=== PATIENT | female | born 2005 | race African-American/Black ===

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

== ENCOUNTER 2023-07-05 07:03 | Emergency (ER) | payer OTHER ==
--- OUTSIDE RECORDS SUMMARY | 2023-07-05 07:06 | XMS REPORT | Continuity of Care Document ---
:2005 Author Organization [facility] t Address [address] [place] [address] [address] [place] [address] Care Team Providers Name Role Phone RUPESH KRUEGER Attending Clinician Unavailable Santiago KENNEDY, Juan Attending Clinician [phone] Ollie KENNEDY, Kamlesh Cummings Attending Clinician KAMLESH TADEO Attending Clinician Unavailable Ailyn KENNEDY, Billie Herrmann Attending Clinician BILLIE ROBERTSON Attending Clinician Unavailable Payers Payer Name Policy Type Policy Number Effective Date Expiration Date [facility] [id number] 2020 [facility] MEDICAID 00:00:00 Problems Condition Condition Condition Status Onset Resolution Last Treating Co mments Source Name Details Category Date Date Treatment Clinician Date No known No known Disease Unive rs active active ity of problems problems [facility] Allergies, Adverse Reactions, Alerts Allergy Allergy Status Severity Reaction(s) Onset Inactive Treating Comm ents Source Name Type Date Date Clinician NO KNOWN Drug Active [facility] Social History Social Habit Start Date Stop Date Quantity Comments Source Exposure to SARS-CoV-2 Not sure [facility] [place] [facility] [place] Sex Assigned At Uni versity [facility] Smoking Status Start Date Stop Date Source Unknown if ever smoked [facility] y [facility] Medications Ordered Filled Start Stop Current Ordering Indication Dosage Frequency Signature Comments Components Source Medication Medication Date Date Medication? Clinician (SIG) Name Name No known No Univers medications [facility] No known No Univers medications [facility] No known No Univers medications [facility] No known No Univers medications [facility] No known No Univers medications [facility] No known No Univers medications [facility] Vital Signs Vital Name Observation Time Observation Value Comments Source Body weight 2020-09-04 16:58:00 58.968 kg Universi ty [facility] Body weight 2020-09-04 16:58:00 58.968 kg Universi ty [facility] Body height 2020-08-24 20:36:00 162.6 cm Universi ty [facility] Body weight 2020-08-24 20:36:00 58.514 kg Universi ty [facility] BMI 2020-08-24 20:36:00 22.14 kg/m2 [facility] Procedures Procedure Date / Time Performing Clinician Source Performed DERMATOPATHOLOGY TISSUE 2020-09-04 00:00:00 [facility] Start End Encounter Admission Attending Care Care Encounter Source Date/Time Date/Time Type Type Clinicians Facility Department ID 2020-10-09 2020-10-09 Outpatient Zoila KRUEGER [facility] [id number] Univers 10:30:00 10:30:00 RUPESH [facility] 2020-09-04 2020-09-04 Office Santiago [facility] [id number] 10:00:23 15:37:22 Visit Juan PRINCE [id number] IAY [id number] [facility] [id number] [facility] [place] [address] [facility] 2020-09-04 2020-09-04 Office Juan Henderson [facility] [id number] Univers 10:00:23 15:37:22 Visit Kamlesh Tadeo [id number] 0 [facility] ADAM [id number] [facility] [id number] [facility] AND [address] [facility] 2020-09-04 2020-09-04 Outpatient Zoila TADEO [facility] [id number] Univers 10:30:00 10:30:00 KAMLESH cedillo [facility] 2020-09-04 2020-09-04 Letter Santiago [facility] [id number] Univers 00:00:00 00:00:00 (Out) Juan [facility] [id number] itnorman [facility] [id number] [facility] [id number] [facility] AND [place] [address] [facility] 2020-08-24 2020-08-24 Office MICHAEL Robertson [id number] Univers 13:48:41 15:00:53 Visit formerly [facility] [id number] i aleks of [facility] [id number] [facility] [id number] [facility] [address] 2020-08-24 2020-08-24 [facility] [id number] [facility] 14:15:00 14:15:00 BILLIE cedillo of [facility] Results This patient has no known results.
--- NOTE | 2023-07-05 07:50 | EDPHYS ---
Physician Documentation [facility] Name: Harmony Montiel Age: 17 yrs Sex: Female : 2005 Arrival Date: 07/05/2023 Time: 07:03 Bed 11 Private MD: ED Physician Isaías Granger HPI: 07/05 07:45 This 17 yrs old Black Female presents to ER via Ambulatory with complaints of Ear Pain. sp3 07:45 17-year-old female with no past medical supersensitive left ear pain and now resolved sp3 sore throat for the last 5 days. No dental pain reported. She denies headache, fever, shortness of breath, neck pain, chest pain, abdominal pain, nausea, vomiting, diarrhea, rash, known sick contacts, travel history, or any other signs or symptoms on ROS at this time.. 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 - Social history:: Smoking status: Patient denies any tobacco usage or history of. ROS: 07:47 Constitutional: Negative for fever, chills, and weight loss, Eyes: Negative for injury, sp3 pain, redness, and discharge, Neck: Negative for injury, pain, and swelling, Cardiovascular: Negative for chest pain, palpitations, and edema, Respiratory: Negative for shortness of breath, cough, wheezing, and pleuritic chest pain, Abdomen/GI: Negative for abdominal pain, nausea, vomiting, diarrhea, and constipation, Back: Negative for injury and pain, MS/Extremity: Negative for injury and deformity, Skin: Negative for injury, rash, and discoloration, Neuro: Negative for headache, weakness, numbness, tingling, and seizure, Psych: Negative for depression, anxiety, suicide ideation, homicidal ideation, and hallucinations, Allergy/Immunology: Negative for hives, rash, and allergies, Endocrine: Negative for neck swelling, polydipsia, polyuria, polyphagia, and marked weight changes, Hematologic/Lymphatic: Negative for swollen nodes, abnormal bleeding, and unusual bruising, 07:47 All other systems are negative, Exam: 07:48 Constitutional: This is a well developed, well nourished patient who is awake, alert, sp3 and in no acute distress. Head/Face: Normocephalic, atraumatic. Eyes: Pupils equal round and reactive to light, extra-ocular motions intact. Lids and lashes normal. Conjunctiva and sclera are non-icteric and not injected. Cornea within normal limits. Periorbital areas with no swelling, redness, or edema. Neck: Trachea midline, no thyromegaly or masses palpated, and no cervical lymphadenopathy. Supple, full range of motion without nuchal rigidity, or vertebral point tenderness. No Meningismus. Chest/axilla: Normal chest wall appearance and motion. Nontender with no deformity. No lesions are appreciated. Cardiovascular: Regular rate and rhythm with a normal S1 and S2. No gallops, murmurs, or rubs. Normal PMI, no JVD. No pulse deficits. Respiratory: Lungs have equal breath sounds bilaterally, clear to auscultation and percussion. No rales, rhonchi or wheezes noted. No increased work of breathing, no retractions or nasal flaring. Abdomen/GI: Soft, non-tender, with normal bowel sounds. No distension or tympany. No guarding or rebound. No evidence of tenderness throughout. Back: No spinal tenderness. No costovertebral tenderness. Full range of motion. Skin: Warm, dry with normal turgor. Normal color with no rashes, no lesions, and no evidence of cellulitis. MS/ Extremity: Pulses equal, no cyanosis. Neurovascular intact. Full, normal range of motion. Neuro: Awake and alert, GCS 15, oriented to person, place, time, and situation. Cranial nerves II-XII grossly intact. Motor strength 5/5 in all extremities. Sensory grossly intact. Cerebellar exam normal. Normal gait. Psych: Awake, alert, with orientation to person, place and time. Behavior, mood, and affect are within normal limits. 07:48 ENT: Left tympanic membrane erythematous without effusion.. Vital Signs: 07:21 BP 102 / 70; Pulse 95; Resp 16; Temp 97.8; Pulse Ox 100% ; Weight 54.43 kg; Height 5 rv ft. 5 in. ; Pain 9/10; 07:21 Body Mass Index 19.97 (54.43 kg, 165.1 cm) - Percentile 27.3 % rv 07:21 Pain Scale: Adult rv MDM: 07:36 Patient medically screened. sp3 07:48 Data reviewed: vital signs, nurses notes. ED course: 17-year-old female with left sp3 otitis media viral versus bacterial. Sore throat is resolved and is normal on examination. There is no dental pathology. Recommend Claritin-D [id number], NSAID [id number] and I will prescribe Augmentin 875 twice daily for 7 days.. Administered Medications: No medications were administered Disposition Summary: 07/05/23 07:50 Discharge Ordered Notes: Location: Home sp3 Condition: Stable sp3 Diagnosis - Otitis media sp3 Followup: sp3 - With: Private Physician - When: As needed - Reason: Continuance of care Discharge Instructions: - Discharge Summary Sheet sp3 - Otitis Media, Adult sp3 Forms: - Medication Reconciliation Form sp3 - Thank You Letter sp3 - Antibiotic Education sp3 - Prescription Opioid Use sp3 - Patient Portal Instructions sp3 - Leadership Thank You Letter sp3 Prescriptions: - Augmentin 875-125 mg Oral tablet - take 1 tablet ORAL route every 12 hours for 7 days; 14 tablet; Refills: 0, sp3 Product Selection Permitted Signatures: Perry Walls RN RN rv Isaías Granger MD MD sp3
--- NOTE | 2023-07-05 07:50 | ER ---
Nurse's Notes [facility] Name: Harmony Montiel Age: 17 yrs Sex: Female : 2005 Arrival Date: 07/05/2023 Time: 07:03 Bed 11 Private MD: Diagnosis: Otitis media Presentation: 07/05 07:21 Chief complaint: Patient states: L ear pain with some drainage for 4 days. Coronavirus rv screen: Vaccine status: Patient reports being unvaccinated. Client denies travel out of the [place] in the last 14 days. At this time, the client does not indicate any symptoms associated with coronavirus-19. Ebola Screen: Patient denies travel to an Ebola-affected area in the 21 days before illness onset. Initial Sepsis Screen: Does the patient meet any 2 criteria? No. Patient's initial sepsis screen is negative. Does the patient have a suspected source of infection? Yes: Other: ear pain/drainage. Risk Assessment: Do you want to hurt yourself or someone else? Patient reports no desire to harm self or others. Onset of symptoms was July 01, 2023. 07:21 Method Of Arrival: Ambulatory rv 07:21 Acuity: BASHIR 4 rv Triage Assessment: 07:21 General: Appears uncomfortable, Behavior is calm, cooperative, appropriate for age. ll1 Pain: Complains of pain in left ear Pain currently is 9 out of 10 on a pain scale. Quality of pain is described as aching, throbbing. EENT: Ear canal clear on left ear see Dr. Granger's note for further details. Reports pain in left ear. 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 - Social history:: Smoking status: Patient denies any tobacco usage or history of. Screenin:58 [facility] ED Fall Risk Assessment (Adult) Score/Fall Risk Level 0 - 2 = Low Risk ll1 Oriented to surroundings, Maintained a safe environment, Educated pt \T\ family on fall prevention, incl call for assistance when getting out of bed, Hourly rounding (assess needs \T\ fall precautionary measures) done. Abuse screen: Denies threats or abuse. Nutritional screening: No deficits noted. Tuberculosis screening: No symptoms or risk factors identified. Assessment: 07:57 Reassessment: No changes from previously documented assessment. Patient and/or family ll1 updated on plan of care and expected duration. Pain level reassessed. Patient is alert, oriented x 3, equal unlabored respirations, skin warm/dry/pink. Vital Signs: 07:21 BP 102 / 70; Pulse 95; Resp 16; Temp 97.8; Pulse Ox 100% ; Weight 54.43 kg; Height 5 rv ft. 5 in. ; Pain 9/10; 07:21 Body Mass Index 19.97 (54.43 kg, 165.1 cm) - Percentile 27.3 % rv 07:21 Pain Scale: Adult rv ED Course: 07:06 Patient arrived in ED. mg5 07:12 Isaías Granger MD is Attending Physician. sp3 07:21 Arm band placed on Patient placed in an exam room, on a stretcher. rv 07:22 Triage completed. rv 07:57 Patient has correct armband on for positive identification. Bed in low position. Call ll1 light in reach. Cardiac monitoring not applicable on this patient. 07:58 Provided Education on: n/a. ll1 07:58 No provider procedures requiring assistance completed. Patient did not have IV access ll1 during this emergency room visit. Administered Medications: No medications were administered Medication: 08:02 VIS not applicable for this client. ll1 Outcome: 07:50 Discharge ordered by . sp3 07:58 Patient left the ED. ll1 07:58 Discharged to home ambulatory, ll1 07:58 Condition: stable 07:58 Discharge instructions given to patient, family, Instructed on discharge instructions, follow up and referral plans. medication usage, Demonstrated understanding of instructions, follow-up care, medications, Prescriptions given X 1, Signatures: Perry Walls RN RN Elena Elaine RN RN ll1 Isaías Granger MD MD sp3 Riri Gomes mg5
[2023-07-05 08:02] VITALS: BP 102/70; TEMP 97.8; O2SAT 100
== END 2023-07-05 07:58 | disposition home or self-care (01) ==
LOC: ER 07:03
DX: H66.92 Otitis media, unspecified, left ear (principal)
CPT/HCPCS: 99283

== ENCOUNTER → 2023-09-07 | Emergency (ER) | payer OTHER ==
[~2023-09-07] MED LIST: ALBUTEROL 2.5 MG/3 ML NEB SOL ONE; FAMOTIDINE 20 MG/2 ML VIAL IV ONE; IPRATROPIUM BROM 0.5MG/2.5ML ONE; KETOROLAC 30 MG/ML INJ ONE; Magnesium Sulfate 2gm IVPB 2 G/50 ML BAG IV ONE; NA CHLORIDE 0.9% 1,000 ML ONE; POTASSIUM 25 MEQ EFFERV TAB ONE
--- OUTSIDE RECORDS SUMMARY | 2023-09-07 21:02 | XMS REPORT | Continuity of Care Document ---
Author Name Unknown Address [address] [place] [address] [facility] thconnect Address [address] [place] [address] Care Team Providers Care Flag Signaler Name Role Phone RUPESH KRUEGER Attending Clinician Unavail able Santiago KENNEDY, Juan Attending Clinician + Kamlesh Levin MD Attending Clinician [phone] KAMLESH LEVIN Attending Clinician Jazmin Robertson MD, Billie Herrmann Attending Clinician [phone] BILLIE ROBERTSON Attending Clinician Unavail able Payers Payer Name Policy Type Policy Number Effective Date Expirati on Date Source [facility] MEDICAID [id number] 2020 00:00:00 Problems Condition Name Condition Details Condition Category Status Onset Date Resolution Date Last Treatment Date Treating Clinician Comments Source No known active problems No known active problems Disease [facility] Allergies, Adverse Reactions, Alerts Allergy Name Allergy Type Status Severity Reaction(s) Onset Date Inactive Date Treating Clinician Comments Source NO KNOWN ALLERGIE S Drug Class Active [facility] Social History Social Habit Start Date Stop Date Quantity Comments Source Exposure to SARS-CoV-2 (event) Not sure [facility] Sex Assigned At [facility] Smoking Status Start Date Stop Date Source Unknown if ever smoked Unive [facility] Medications Ordered Medication Name Filled Medication Name Start Date Stop Date Current Medication? Ordering Clinician Indication Dosage Frequency Signature (SIG) Comments Components Source No known medications No Un nancy [facility] No known medications No Un nancy [facility] No known medications No Un nancy [facility] No known medications No Un nancy ity [facility] No known medications No Un nancy [facility] No known medications No Un nancy [facility] Vital Signs Vital Name Observation Time Observation Value Comments Flakito mohan Body weight 2020-09-04 16:58:00 58.968 kg [facility] Body weight 2020-09-04 16:58:00 58.968 kg [facility] Body height 2020-08-24 20:36:00 162.6 cm [facility] Body weight 2020-08-24 20:36:00 58.514 kg [facility] BMI 2020-08-24 20:36:00 22.14 kg/m2 [facility] Procedures Procedure Date / Time Performed Performing Clinician Source DERMATOPATHOLOGY TISSUE EXAM 2020-09-04 00:00:00 Kamlesh Levin [facility] Encounters Start Date/Time End Date/Time Encounter Type Admission Type Attending Clinicians Care Facility Care Department Encounter ID Source 2020-10-09 10:30:00 2020-10-09 10:30:00 Outpatient RUPESH SAUL [facility] [id number] [facility] 2020-09-04 10:00:23 2020-09-04 15:37:22 Office Visit Juan Henderson [facility] [id number] 2020-09-04 10:00:23 2020-09-04 15:37:22 Office Visit Juan Henderson Bernard R [facility] [id number] [facility] 2020-09-04 10:30:00 2020-09-04 10:30:00 Outpatient KAMLESH LOPES [facility] [id number] [facility] 2020-09-04 00:00:00 2020-09-04 00:00:00 Letter (Out) Juan Henderson [facility] [id number] [facility] 2020-08-24 13:48:41 2020-08-24 15:00:53 Office Visit Billie Robertson [facility] [id number] [facility] 2020-08-24 14:15:00 2020-08-24 14:15:00 Outpatient R BILLIE ROBERTSON [facility] [id number] [facility]
[2023-09-07 22:52] LABS: Absolute Lymphocytes (CBC) 2.1 K/uL (0.7-4.9); Hematocrit 36.7 % (36.0-45.0); Lymphocytes % 32.2 % (15.3-44.8); MCV 81.3 fL (80-100); MPV 8.5 fL (7.6-11.3); Platelets 237 thou/uL (152-406); RBC Red Blood Cell Count 4.51 M/uL (3.86-4.86)
[2023-09-07 22:57] LABS: ALT/SGPT 15 U/L (13-56); AST/SGOT 11 U/L (15-37); Albumin 3.9 g/dL (3.4-5.0); Alkaline Phosphatase 87 U/L (45-117); BUN Blood Urea Nitrogen 10 mg/dL (7-18); Bicarbonate 25 mEq/L (21-32); Bilirubin Direct 0.2 mg/dL (0-0.2); Bilirubin Indirect, Calculated 0.4 mg/dL (0.2-0.8); Bilirubin Total 0.6 mg/dL (0.2-1.0); Glomerular Filtration Rate 128 ml/min (=/>90); Glucose Level 105 mg/dL (74-106); Lipase 36 U/L (13-75); Magnesium 2.2 mg/dL (1.6-2.4); Potassium 3.3 mEq/L (3.5-5.1); Protein, Total 7.8 g/dL (6.4-8.2); Sodium Level 138 mEq/L (136-145)
[2023-09-07 22:58] LABS: Troponin High Sensitivity < 3.0 pg/mL (<58.9)
--- NOTE | 2023-09-08 00:12 | EDPHYS ---
Physician Documentation [facility] Name: Harmony Montiel Age: 18 yrs Sex: Female : 2005 Arrival Date: 09/07/2023 Time: 20:59 Bed IW10 Private MD: ED Physician Norman Tamez HPI: 09/07 22:05 This 18 yrs old Black Female presents to ER via Ambulatory with complaints of Chest cp Pain. 22:05 The patient or guardian reports chest pain that is located primarily in the anterior cp chest wall, bilaterally. The pain does not radiate. Associated signs and symptoms: Pertinent positives: dizziness, back pain, Pertinent negatives: abdominal pain, cough, lower extremity pain, lower extremity swelling, near syncope, palpitations, shortness of breath, syncope, vomiting. The chest pain is described as burning. Duration: The patient or guardian reports a single episode, that is still ongoing, and unchanged, started 1 hour ago. 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 - Social history:: Smoking status: Patient denies any tobacco usage or history of. ROS: 22:10 Cardiovascular: Positive for chest pain, Negative for edema, palpitations, cp 22:10 Eyes: Negative for injury, pain, redness, and discharge, cp 22:10 Constitutional: Negative for body aches, chills, fever, poor PO intake, 22:10 Neck: Negative for pain with movement, pain at rest, stiffness, tenderness, bony tenderness, 22:10 Respiratory: Negative for cough, shortness of breath, wheezing, 22:10 Back: Positive for pain at rest, pain with movement, of the left scapular area, right scapular area, left subscapular area and right subscapular area, Negative for injury or acute deformity, decreased range of motion, 22:10 Abdomen/GI: Negative for abdominal pain, vomiting, diarrhea, constipation, cp 22:10 : Negative for urinary symptoms, 22:10 Neuro: Positive for dizziness, Negative for altered mental status, headache, numbness, syncope, weakness, 22:10 All other systems are negative, Exam: 21:42 ECG was reviewed by the Attending Physician. cp 22:15 Constitutional: The patient appears in no acute distress, alert, awake, cp non-diaphoretic, non-toxic, well developed, well nourished, 22:15 Head/Face: Normocephalic, atraumatic. cp 22:15 Eyes: Periorbital structures: appear normal, Conjunctiva: normal, no exudate, no injection, Sclera: no appreciated abnormality, Lids and lashes: appear normal, bilaterally, 22:15 ENT: External ear(s): are unremarkable, Nose: is normal, Mouth: Lips: moist, Oral mucosa: moist, Posterior pharynx: Airway: no evidence of obstruction, patent, 22:15 Neck: ROM/movement: is normal, is supple, without pain, no range of motions limitations, 22:15 Chest/axilla: Inspection: normal, 22:15 Cardiovascular: Rate: tachycardic, Rhythm: regular, Edema: is not appreciated, JVD: is not appreciated, 22:15 Respiratory: the patient does not display signs of respiratory distress, Respirations: normal, no use of accessory muscles, no retractions, labored breathing, is not present, Breath sounds: are clear throughout, no decreased breath sounds, no stridor, no wheezing, 22:15 Abdomen/GI: Inspection: abdomen appears normal, Palpation: abdomen is soft and non-tender, in all quadrants, 22:15 Back: pain, that is mild, of the left scapular area, right scapular area, left subscapular area and right subscapular area, ROM is normal, 22:15 Skin: no rash present. 22:15 Neuro: Orientation: to person, place \T\ time. Mentation: is normal, Motor: moves all fours, strength is normal, Vital Signs: 21:00 BP 111 / 79; Pulse 100; Resp 16; Pulse Ox 100% ; la4 21:09 BP 111 / 79; Pulse 103; Resp 20 S; Temp 98.2(O); Pulse Ox 100% on R/A; Weight 56.7 kg as6 (R); Height 5 ft. 5 in. (R); Pain 6/10; 21:30 BP 123 / 74; Pulse 92; Resp 16; Pulse Ox 100% ; la4 22:00 BP 122 / 68; Pulse 97; Resp 16; Pulse Ox 100% ; la4 21:09 Body Mass Index 20.80 (56.70 kg, 165.1 cm) - Percentile 38.3 % as6 21:09 Pain Scale: Adult as6 Mohsen Coma Score: 21:30 Eye Response: spontaneous(4). Motor Response: obeys commands(6). Verbal Response: la4 oriented(5). Total: 15. 22:00 Eye Response: spontaneous(4). Motor Response: obeys commands(6). Verbal Response: la4 oriented(5). Total: 15. MDM: 21:14 Patient medically screened. 22:00 Differential diagnosis: acute myocardial infarction, acute pericarditis, anxiety, chest cp wall pain, cholecystitis, Cholelithiasis costochondritis, pericarditis, pleurisy, pneumonia, pneumothorax, pulmonary embolus. 09/08 00:10 Data reviewed: vital signs, nurses notes, lab test result(s), EKG, radiologic studies, cp plain films. 00:10 I considered the following discharge prescriptions or medication management in the emergency department Medications were administered in the Emergency Department. See MAR. Test considered but Not performed: CT: chest. Counseling: I had a detailed discussion with the patient and/or guardian regarding the historical points, exam findings, and any diagnostic results supporting the discharge/admit diagnosis, lab results, radiology results, the need for outpatient follow up, a family practitioner, to return to the emergency department if symptoms worsen or persist or if there are any questions or concerns that arise at home. Response to treatment: the patient's symptoms have markedly improved after treatment, and as a result, I will discharge patient. Special discussion: Based on the patient's history, exam, and Dx evaluation, there is no indication for emergent intervention or inpatient Tx. It is understood by the patient/guardian that if the Sx's persist or worsen they need to return immediately for re-evaluation. 09/07 21:19 Order name: Basic Metabolic Panel; Complete Time: 23:10 09/07 23:11 Interpretation: Normal except: K 3.3. 09/07 21:19 Order name: CBC with Diff; Complete Time: 23:10 09/07 21:19 Order name: D-Dimer; Complete Time: 23:10 cp 09/07 21:19 Order name: LFT's; Complete Time: 23:10 cp 09/07 21:19 Order name: Magnesium; Complete Time: 23:10 cp 09/07 21:19 Order name: Troponin HS; Complete Time: 23:10 cp 09/07 21:19 Order name: Lipase; Complete Time: 23:10 cp 09/07 21:19 Order name: XRAY Chest (1 view) cp 09/07 21:19 Order name: EKG; Complete Time: 21:20 cp 09/07 21:19 Order name: Cardiac monitoring; Complete Time: 21:41 cp 09/07 21:19 Order name: EKG - Nurse/Tech; Complete Time: 21:41 cp 09/07 21:19 Order name: IV Saline Lock; Complete Time: 22:24 cp 09/07 21:19 Order name: Labs collected and sent; Complete Time: 22:24 cp 09/07 21:19 Order name: O2 Per Protocol; Complete Time: 22:24 cp 09/07 21:19 Order name: O2 Sat Monitoring; Complete Time: 22:24 cp EC/28 21:42 Rate is 97 beats/min. Rhythm is regular. MN interval is normal. QRS interval is normal. cp QT interval is normal. T waves are Inverted in leads I, II. Interpreted by me. Reviewed by me. Administered Medications: 21:40 Drug: Ketorolac IVP 15 mg IVP once Route: IVP; Site: right forearm; la4 22:28 Follow up: Response: No adverse reaction; No change in condition; Pain is decreased la4 23:46 Follow up: Response: No adverse reaction; Pain is decreased la4 21:40 Drug: NS 0.9% IV 1000 ml IV at 1 bolus Per protocol; 1000 mL bolus Route: IV; Rate: 1 la4 bolus; Site: right forearm; 23:45 Follow up: Response: No adverse reaction; Marked relief of symptoms; IV Status: la4 Completed infusion; IV Intake: 1000ml 21:40 Drug: Famotidine IVP 20 mg IVP once; dilute with 10 mL 0.9% NaCl; give over 2 minutes la4 Route: IVP; Site: right forearm; 22:29 Follow up: Response: No adverse reaction; Marked relief of symptoms; Pain is decreased la4 23:45 Follow up: Response: No adverse reaction; Marked relief of symptoms la4 23:53 Drug: Potassium PO Effervescent Tablet 50 mEq PO once; dissolve in 4 ounces of water or la4 juice Route: PO; Disposition: 09/08 07:04 Co-signature as Attending Physician, Norman Tamez MD I reviewed the patient's care rn provided by the Advanced Practice Provider and agree with the diagnosis and treatment plan. Disposition Summary: 09/08/23 00:12 Discharge Ordered Notes: Location: Home cp Problem: new cp Symptoms: have improved cp Condition: Stable cp Diagnosis - Chest pain, unspecified cp - Dorsalgia, unspecified cp Followup: cp - With: Private Physician - When: 2 - 3 days - Reason: Recheck today's complaints Discharge Instructions: - Discharge Summary Sheet cp - Acute Back Pain, Adult cp - Nonspecific Chest Pain, Adult cp Forms: - Medication Reconciliation Form cp - Thank You Letter cp - Antibiotic Education cp - Prescription Opioid Use cp - Patient Portal Instructions cp - Leadership Thank You Letter cp Prescriptions: - Ibuprofen 600 mg Oral tablet - take 1 tablet ORAL route every 8 hours As needed take with food; 30 tablet; cp Refills: 0, Product Selection Permitted Signatures: Dispatcher [employer] EDNorman Caraballo MD MD rn Page, Corey, PA PA cp Lakhwinder Mcguire RN RN as6 Tomer Calderon RN RN la4
--- NOTE | 2023-09-08 00:12 | ER ---
Nurse's Notes [facility] Name: Harmony Montiel Age: 18 yrs Sex: Female : 2005 Arrival Date: 09/07/2023 Time: 20:59 Bed IW10 Private MD: Diagnosis: Chest pain, unspecified;Dorsalgia, unspecified Presentation: 09/07 21:09 Chief complaint: Patient states: dizziness, "feeling off", chest burning. Coronavirus as6 screen: At this time, the client does not indicate any symptoms associated with coronavirus-19. Ebola Screen: No symptoms or risks identified at this time. Initial Sepsis Screen: Does the patient meet any 2 criteria? No. Patient's initial sepsis screen is negative. Does the patient have a suspected source of infection? No. Patient's initial sepsis screen is negative. Risk Assessment: Do you want to hurt yourself or someone else? Patient reports no desire to harm self or others. Onset of symptoms was September 07, 2023. 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 - Social history:: Smoking status: Patient denies any tobacco usage or history of. Screenin:38 [facility] ED Fall Risk Assessment (Adult) History of falling in the last 3 months, la4 including since admission No falls in past 3 months (0 pts) Confusion or Disorientation No (0 pts) Intoxicated or Sedated No (0 pts) Impaired Gait Yes (1 pt) Mobility Assist Device Used No (0 pt) Altered Elimination No (0 pt) Score/Fall Risk Level 0 - 2 = Low Risk Oriented to surroundings, Provided non-skid footwear, Hourly rounding (assess needs \\T\\ fall precautionary measures) done. Abuse screen: Denies threats or abuse. Denies injuries from another. Nutritional screening: No deficits noted. Tuberculosis screening: No symptoms or risk factors identified. Assessment: 21:30 Reassessment: Patient is alert, oriented x 3, equal unlabored respirations, skin la4 warm/dry/pink. Patient noted to be in room, on monitor, no report on pt being brought to room or pt complaint. Pt appears to be in no apparent distress at this time. Pt reports she came to ER for burning in her chest after eating pasta prior to coming in. Patient Triaged by Lakhwinder PLAZA and placed in room with no report given. General: Appears uncomfortable, Behavior is calm, cooperative, appropriate for age. 21:30 Pain: Complains of pain in anterior aspect of right upper chest, xiphoid area and la4 mid-sternal area Pain does not radiate. Pain currently is 5 out of 10 on a pain scale. Quality of pain is described as burning, Pain began suddenly, after eating pasta Is continuous, lasting more than 1 hour. Cardiovascular: No deficits noted. Heart tones S1 S2 Capillary refill < 3 seconds is brisk fingers Patient's skin is warm and dry. Pulses are all present. Edema is absent. Rhythm is sinus rhythm. Respiratory: No deficits noted. Airway is patent Respiratory effort is even, unlabored, Respiratory pattern is regular, symmetrical, Breath sounds are clear. GI: No deficits noted. Abdomen is flat, non-distended, Bowel sounds present X 4 quads. : No deficits noted. No signs and/or symptoms were reported regarding the genitourinary system. EENT: No deficits noted. No signs and/or symptoms were reported regarding the EENT system. Derm: No deficits noted. No signs and/or symptoms reported regarding the dermatologic system. Musculoskeletal: No deficits noted. No signs and/or symptoms reported regarding the musculoskeletal system. Vital Signs: 21:00 BP 111 / 79; Pulse 100; Resp 16; Pulse Ox 100% ; la4 21:09 BP 111 / 79; Pulse 103; Resp 20 S; Temp 98.2(O); Pulse Ox 100% on R/A; Weight 56.7 kg as6 (R); Height 5 ft. 5 in. (R); Pain 6/10; 21:30 BP 123 / 74; Pulse 92; Resp 16; Pulse Ox 100% ; la4 22:00 BP 122 / 68; Pulse 97; Resp 16; Pulse Ox 100% ; la4 21:09 Body Mass Index 20.80 (56.70 kg, 165.1 cm) - Percentile 38.3 % as6 21:09 Pain Scale: Adult as6 Vitals: 21:30 Cardiac Rhythm Assessment Regular Sinus rhythm. la4 Mohsen Coma Score: 21:30 Eye Response: spontaneous(4). Motor Response: obeys commands(6). Verbal Response: la4 oriented(5). Total: 15. 22:00 Eye Response: spontaneous(4). Motor Response: obeys commands(6). Verbal Response: la4 oriented(5). Total: 15. ED Course: 21:04 Patient arrived in ED. ag3 21:10 Triage completed. as6 21:10 Arm band placed on. as6 21:14 Mina Caro PA is PHCP. cp 21:14 Norman Tamez MD is Attending Physician. cp 21:30 Tomer Calderon RN is Primary Nurse. la4 21:30 Patient has correct armband on for positive identification. Placed in gown. Bed in low la4 position. Call light in reach. Side rails up X2. 21:30 No provider procedures requiring assistance completed. Inserted saline lock: 20 gauge la4 in right forearm, using aseptic technique. Blood collected. 21:30 Patient maintains SpO2 saturation greater than 95% on room air. la4 22:38 Provided Education on: Plan of care. Client placed on continuous cardiac and pulse la4 oximetry monitoring. NIBP monitoring applied. 22:48 XRAY Chest (1 view) In Process Unspecified. EDMS Administered Medications: 21:40 Drug: Ketorolac IVP 15 mg IVP once Route: IVP; Site: right forearm; la4 22:28 Follow up: Response: No adverse reaction; No change in condition; Pain is decreased la4 23:46 Follow up: Response: No adverse reaction; Pain is decreased la4 21:40 Drug: NS 0.9% IV 1000 ml IV at 1 bolus Per protocol; 1000 mL bolus Route: IV; Rate: 1 la4 bolus; Site: right forearm; 23:45 Follow up: Response: No adverse reaction; Marked relief of symptoms; IV Status: la4 Completed infusion; IV Intake: 1000ml 21:40 Drug: Famotidine IVP 20 mg IVP once; dilute with 10 mL 0.9% NaCl; give over 2 minutes la4 Route: IVP; Site: right forearm; 22:29 Follow up: Response: No adverse reaction; Marked relief of symptoms; Pain is decreased la4 23:45 Follow up: Response: No adverse reaction; Marked relief of symptoms la4 23:53 Drug: Potassium PO Effervescent Tablet 50 mEq PO once; dissolve in 4 ounces of water or la4 juice Route: PO; Medication: 22:40 VIS not applicable for this client. la4 Intake: 23:45 IV: 1000ml; Total: 1000ml. la4 Outcome: 09/08 00:12 Discharge ordered by . sharon 00:30 Discharged to home la4 00:30 Condition: stable la4 00:30 Instructed on discharge instructions, follow up and referral plans. Demonstrated understanding of instructions, follow-up care, medications, Prescriptions given X 1, 05:09 Patient left the ED. la4 Signatures: Dispatcher [employer] EDMS Mina Caro PA PA cp Gomez, Alice ag3 Lakhwinder Mcguire RN RN as6 Tomer Calderon RN RN la4 Corrections: (The following items were deleted from the chart) 09/07 22:39 22:38 Patient has correct armband on for positive identification. Placed in gown. Bed la4 in low position. Call light in reach. Side rails up X2. la4
[2023-09-08 05:39] VITALS: BP 122/68; TEMP 98.2; O2SAT 100
--- NOTE | 2023-09-08 13:16 | RAD REPORT ---
EXAM DESCRIPTION: RAD - Chest Single View - 09/07/2023 10:47 pm CLINICAL HISTORY: 18 years Female, CHEST PAIN COMPARISON: None FINDINGS: No focal lung consolidation. No pleural effusion. No pneumothorax. Cardiomediastinal silhouette is within normal limits. No acute osseous abnormality. IMPRESSION: No acute cardiopulmonary disease. 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 The interpreting r adiologist is fully responsible for the content of the report.
== END ==
LOC: ER 20:59
DX: R07.89 Other chest pain (principal); M54.9 Dorsalgia, unspecified
CPT/HCPCS: 93005; 85025; 80048; 36415; 83735; 85379; 80076; 84484; 83690; 71045; J7030

== ENCOUNTER → 2023-10-06 | Emergency (ER) | payer OTHER ==
--- OUTSIDE RECORDS SUMMARY | 2023-10-06 09:54 | XMS REPORT | Continuity of Care Document ---
Author Name Unknown Address [address] [facility] [address] [place] [address] [facility] thconnect Address [address] [facility] [address] [place] [address] Care Team Providers Care Electronics Maintenance Technician Name Role Phone RUPESH KRUEGER Attending Clinician Unavail able Santiago KENNEDY, Juan Attending Clinician + Kamlesh Levin MD Attending Clinician [phone] KAMLESH LEVIN Attending Clinician Jazmin Robertson MD, Billie Herrmann Attending Clinician [phone] BILLIE ROBERTSON Attending Clinician Unavail able Payers Payer Name Policy Type Policy Number Effective Date Expirati on Date Source [facility] MEDICAID [id number] 2020 00:00:00 Problems Condition Name Condition Details Condition Category Status Onset Date Resolution Date Last Treatment Date Treating Clinician Comments Source No known active problems No known active problems Disease Univers [facility] Allergies, Adverse Reactions, Alerts Allergy Name Allergy Type Status Severity Reaction(s) Onset Date Inactive Date Treating Clinician Comments Source NO KNOWN ALLERGIE S Drug Class Active Univers [facility] Social History Social Habit Start Date Stop Date Quantity Comments Source Exposure to SARS-CoV-2 (event) Not sure [facility] Sex Assigned At [facility] Smoking Status Start Date Stop Date Source Unknown if ever smoked Unive [facility] Medications Ordered Medication Name Filled Medication Name Start Date Stop Date Current Medication? Ordering Clinician Indication Dosage Frequency Signature (SIG) Comments Components Source No known medications No Un nancy [facility] No known medications No Un nancy [facility] No known medications No Un nancy [facility] No known medications No Un nancy ity [facility] No known medications No Un nancy [facility] No known medications No Un nancy [facility] Vital Signs Vital Name Observation Time Observation Value Comments Flakito mohan Body weight 2020-09-04 16:58:00 58.968 kg [facility] Body weight 2020-09-04 16:58:00 58.968 kg [facility] Body height 2020-08-24 20:36:00 162.6 cm [facility] Body weight 2020-08-24 20:36:00 58.514 kg [facility] BMI 2020-08-24 20:36:00 22.14 kg/m2 [facility] Procedures Procedure Date / Time Performed Performing Clinician Source DERMATOPATHOLOGY TISSUE EXAM 2020-09-04 00:00:00 Kamlesh Levin [facility] Encounters Start Date/Time End Date/Time Encounter Type Admission Type Attending Clinicians Care Facility Care Department Encounter ID Source 2020-10-09 10:30:00 2020-10-09 10:30:00 Outpatient RUPESH SAUL [facility] [id number] [facility] 2020-09-04 10:00:23 2020-09-04 15:37:22 Office Visit Juan Henderson [facility] [id number] 2020-09-04 10:00:23 2020-09-04 15:37:22 Office Visit Juan Henderson Bernard R [facility] [id number] [facility] 2020-09-04 10:30:00 2020-09-04 10:30:00 Outpatient KAMLESH LOPES [facility] [id number] [facility] 2020-09-04 00:00:00 2020-09-04 00:00:00 Letter (Out) Juan Henderson [facility] [id number] [facility] 2020-08-24 13:48:41 2020-08-24 15:00:53 Office Visit Billie Robertson [facility] [id number] [facility] 2020-08-24 14:15:00 2020-08-24 14:15:00 Outpatient R BILLIE ROBERTSON [facility] [id number] [facility]
[2023-10-06 10:32] LABS: Specific Gravity 1.026 (1.005-1.030)
[2023-10-06 10:33] LABS: Specific Gravity 1.026 (1.005-1.030); Transitional Epithelial <5 /HPF (None Seen); Urine Bacteria <20 /HPF (<20); Urine Bilirubin NEGATIVE (Negative); Urine Blood Negative (Negative); Urine Clarity Extremely Turbid (Clear); Urine Color Yellow (Yellow); Urine Glucose NEGATIVE (Negative); Urine Mucus 3+ /HPF (None Seen); Urine Protein TRACE (Negative); Urine Urobilinogen Normal (Normal); Urine pH 5.5 (5.0-7.0)
--- NOTE | 2023-10-06 10:36 | ER ---
Nurse's Notes [facility] Name: Harmony Montiel Age: 18 yrs Sex: Female : 2005 Arrival Date: 10/06/2023 Time: 09:51 Bed 20 Private MD: Diagnosis: Acute cystitis with hematuria Presentation: 10/06 09:57 Chief complaint: Patient states: Dysuria since Friday, taking AZO's, states she had nj1 diarrhea yesterday and saw blood in it. Today, she noticed blood when wiping after she urinated. Coronavirus screen: Vaccine status: Patient reports being unvaccinated. Ebola Screen: Patient denies travel to an Ebola-affected area in the 21 days before illness onset. 09:57 Method Of Arrival: Ambulatory [facility] 09:57 Initial Sepsis Screen: Does the patient meet any 2 criteria? No. Patient's initial [facility] sepsis screen is negative. Does the patient have a suspected source of infection? No. Patient's initial sepsis screen is negative. Risk Assessment: Do you want to hurt yourself or someone else? Patient reports no desire to harm self or others. Onset of symptoms was October 03, 2023. 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 - Social history:: Smoking status: Reported history of juuling and/or vaping. Screenin:11 [facility] ED Fall Risk Assessment (Adult) History of falling in the last 3 months, me1 including since admission No falls in past 3 months (0 pts) Confusion or Disorientation No (0 pts) Intoxicated or Sedated No (0 pts) Impaired Gait No (0 pts) Mobility Assist Device Used No (0 pt) Altered Elimination No (0 pt) Score/Fall Risk Level 0 - 2 = Low Risk Oriented to surroundings, Provided non-skid footwear, Hourly rounding (assess needs \T\ fall precautionary measures) done. Abuse screen: Denies threats or abuse. Nutritional screening: No deficits noted. Tuberculosis screening: No symptoms or risk factors identified. Assessment: 10:11 General: Appears comfortable, well groomed, well developed, well nourished, Behavior is me1 calm, cooperative, appropriate for age, Reports Dysuria since Friday, taking AZO's, states she had diarrhea yesterday and saw blood in it. Today, she noticed blood when wiping after she urinated. Pain: Denies pain. Neuro: Level of Consciousness is awake, alert, obeys commands, Oriented to person, place, time, situation, Appropriate for age. Cardiovascular: Capillary refill < 3 seconds Patient's skin is warm and dry. Respiratory: Airway is patent Trachea midline Respiratory effort is even, unlabored, Respiratory pattern is regular, symmetrical. : Reports burning with urination, since 3 days ago blood noted when wiping after urination. Vital Signs: 09:57 BP 120 / 82; Pulse 80; Resp 16; Temp 98.2(O); Pulse Ox 96% on R/A; Weight 56.7 kg; nj1 Height 5 ft. 5 in. ; 10:15 BP 121 / 79; Pulse 72; Resp 16; Pulse Ox 99% on R/A; me1 10:42 BP 115 / 72; Pulse 67; Resp 16; Pulse Ox 99% on R/A; me1 09:57 Body Mass Index 20.80 (56.70 kg, 165.1 cm) nj1 ED Course: 09:55 Patient arrived in ED. mg5 09:55 Zahra Jenkins PA-C is PHCP. sb4 09:55 Mian Stock MD is Attending Physician. sb4 10:03 Triage completed. nj1 10:03 Jeannine Ridley, RN is Primary Nurse. me1 10:04 Arm band placed on. nj1 10:11 Patient has correct armband on for positive identification. Bed in low position. Call me1 light in reach. Side rails up X 1. Provided Education on: POC. Verbalized understanding. . 10:11 No provider procedures requiring assistance completed. Patient did not have IV access [facility] during this emergency room visit. 10:15 UAM Sent. me1 10:15 Test, Urine Sent. me1 10:42 Urine Culture Sent. me1 Administered Medications: No medications were administered Medication: 10:11 VIS not applicable for this client. me1 Outcome: 10:34 Discharge ordered by . sb4 10:44 Discharged to home ambulatory, me1 10:44 Condition: stable 10:44 Discharge instructions given to patient, Instructed on discharge instructions, follow up and referral plans. medication usage, Demonstrated understanding of instructions, follow-up care, medications, 10:45 Patient left the ED. me1 Signatures: Zahra Jenkins PA-C PA-C sb4 Mely Ashton RN RN nj1 Jeannine Ridley RN RN me1 Riri Gomes mg5 Corrections: (The following items were deleted from the chart) 10:04 09:57 Chief complaint: Patient states: Dysuria since Friday, taking AZO's, states she me1 had diarrhea yesterday and saw blood in it. Today, she noticed blood when wiping after she urinated. nj1
--- NOTE | 2023-10-06 10:36 | EDPHYS ---
Physician Documentation [facility] Name: Harmony Montiel Age: 18 yrs Sex: Female : 2005 Arrival Date: 10/06/2023 Time: 09:51 Bed 20 Private MD: ED Physician Mina Stock HPI: 10/06 10:13 This 18 yrs old Black Female presents to ER via Ambulatory with complaints of Urinary sb4 Problem. 10:13 Patient reports dysuria began about 3 days ago. She has been taking Azo which has sb4 relieved the symptoms. She states that this morning she noticed a few drops of blood when she wiped after urinating. She believes it came from her urethra. She states that she is not supposed to start her menstrual cycle for another 10 days. She denies any flank pain, fever, nausea, vomiting. 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 - Social history:: Smoking status: Reported history of juuling and/or vaping. ROS: 10:13 Positive for hematuria, burning with urination, sb4 10:13 Constitutional: Negative for fever, chills, and weight loss, 10:13 All other systems are negative, Exam: 10:13 Constitutional: This is a well developed, well nourished patient who is awake, alert, sb4 and in no acute distress. Head/Face: Normocephalic, atraumatic. Eyes: Extra-ocular motions intact. Periorbital areas with no swelling, redness, or edema. ENT: Mucous membranes moist. Cardiovascular: Regular rate and rhythm with a normal S1 and S2. Respiratory: Lungs have equal breath sounds bilaterally, clear to auscultation and percussion. No rales, rhonchi or wheezes noted. No increased work of breathing, no retractions or nasal flaring. Abdomen/GI: Soft, non-tender, no distension. Back: No spinal tenderness. No costovertebral tenderness. Full range of motion. Skin: Warm, dry with normal turgor. Normal color with no rashes, no lesions, and no evidence of cellulitis. MS/ Extremity: Pulses equal, no cyanosis. Neurovascular intact. Full, normal range of motion. Neuro: Awake and alert, GCS 15, oriented to person, place, time, and situation. Motor strength 5/5 in all extremities. Sensory grossly intact. Vital Signs: 09:57 BP 120 / 82; Pulse 80; Resp 16; Temp 98.2(O); Pulse Ox 96% on R/A; Weight 56.7 kg; nj1 Height 5 ft. 5 in. ; 10:15 BP 121 / 79; Pulse 72; Resp 16; Pulse Ox 99% on R/A; me1 10:42 BP 115 / 72; Pulse 67; Resp 16; Pulse Ox 99% on R/A; me1 09:57 Body Mass Index 20.80 (56.70 kg, 165.1 cm) nj1 MDM: 09:57 Patient medically screened. sb4 10:13 Differential diagnosis: dysmenorrhea, menorrhea, urinary tract infection, IUP. sb4 10:34 Data reviewed: vital signs, nurses notes, lab test result(s), and as a result, I will sb4 discharge patient. Counseling: I had a detailed discussion with the patient and/or guardian regarding the historical points, exam findings, and any diagnostic results supporting the discharge/admit diagnosis, lab results, to return to the emergency department if symptoms worsen or persist or if there are any questions or concerns that arise at home. 10/06 10:10 Order name: UAM; Complete Time: 10:34 sb4 10/06 10:10 Order name: Test, Urine; Complete Time: 10:34 sb4 10/06 10:35 Order name: Urine Culture sb4 Administered Medications: No medications were administered Disposition Summary: 10/06/23 10:34 Discharge Ordered Notes: Location: Home sb4 Problem: an ongoing problem sb4 Symptoms: are unchanged sb4 Condition: Stable sb4 Diagnosis - Acute cystitis with hematuria sb4 Followup: sb4 - With: Emergency Department - When: As needed - Reason: Trouble breathing, Worsening of condition Discharge Instructions: - Discharge Summary Sheet sb4 - Urinary Tract Infection, Adult sb4 Forms: - Thank You Letter sb4 - Patient Portal Instructions sb4 - Leadership Thank You Letter sb4 Prescriptions: - Macrobid 100 mg Oral Capsule - take 1 capsule ORAL route every 12 hours for 7 days; 14 capsule; Refills: 0, sb4 Product Selection Permitted Signatures: Dispatcher [employer] Zahra Sandoval, CATHERINE PATingC sb4 Mely Ashton, RN RN nj1
[2023-10-06 11:19] VITALS: BP 115/72; TEMP 98.2; O2SAT 99
== END ==
LOC: ER 09:51
DX: N30.01 Acute cystitis with hematuria (principal); Z28.310 Unvaccinated for COVID-19
CPT/HCPCS: 81001; 81025; 87086; 87088; 99283

== ENCOUNTER 2024-01-20 07:06 | Emergency (ER) | payer OTHER, SELFPAY ==
--- OUTSIDE RECORDS SUMMARY | 2024-01-20 07:08 | XMS REPORT | Continuity of Care Document ---
Author Name Unknown Address [address] [facility] [address] [place] [address] [facility] thconnect Address [address] [facility] [address] [place] [address] Care Team Providers Care Rail Track Layer Name Role Phone RUPESH KRUEGER Attending Clinician Unavail able Santiago KENNEDY, Juan Attending Clinician + Kamlesh Levin MD Attending Clinician [phone] KAMLESH LEVIN Attending Clinician Jazmin Robertson MD, Billie Herrmann Attending Clinician [phone] BILLIE ROBERTSON Attending Clinician Unavail able Payers Payer Name Policy Type Policy Number Effective Date Expirati on Date Source [facility] MEDICAID [id number] 2020 00:00:00 Problems Condition Name Condition Details Condition Category Status Onset Date Resolution Date Last Treatment Date Treating Clinician Comments Source No known active problems No known active problems Disease Univers [facility] Allergies, Adverse Reactions, Alerts Allergy Name Allergy Type Status Severity Reaction(s) Onset Date Inactive Date Treating Clinician Comments Source NO KNOWN ALLERGIE S Drug Class Active Univers [facility] Social History Social Habit Start Date Stop Date Quantity Comments Source Exposure to SARS-CoV-2 (event) Not sure [facility] Sex Assigned At [facility] Smoking Status Start Date Stop Date Source Unknown if ever smoked Unive [facility] Medications Ordered Medication Name Filled Medication Name Start Date Stop Date Current Medication? Ordering Clinician Indication Dosage Frequency Signature (SIG) Comments Components Source No known medications No Un nancy [facility] No known medications No Un nancy [facility] No known medications No Un nancy [facility] No known medications No Un nancy [facility] No known medications No Un nancy [facility] Vital Signs Vital Name Observation Time Observation Value Comments Flakito mohan Body weight 2020-09-04 16:58:00 58.968 kg [facility] Body weight 2020-09-04 16:58:00 58.968 kg [facility] Body height 2020-08-24 20:36:00 162.6 cm [facility] Body weight 2020-08-24 20:36:00 58.514 kg [facility] BMI 2020-08-24 20:36:00 22.14 kg/m2 [facility] Procedures Procedure Date / Time Performed Performing Clinician Source DERMATOPATHOLOGY TISSUE EXAM 2020-09-04 00:00:00 Kamlesh Levin [facility] Encounters Start Date/Time End Date/Time Encounter Type Admission Type Attending Clinicians Care Facility Care Department Encounter ID Source 2020-10-09 10:30:00 2020-10-09 10:30:00 Outpatient RUPESH SAUL [facility] [id number] [facility] 2020-09-04 10:00:23 2020-09-04 15:37:22 Office Visit Juan Henderson [facility] [id number] 2020-09-04 10:00:23 2020-09-04 15:37:22 Office Visit Juan Henderson Bernard R [facility] [id number] [facility] 2020-09-04 10:30:00 2020-09-04 10:30:00 Outpatient KAMLESH LOPES [facility] [id number] [facility] 2020-09-04 00:00:00 2020-09-04 00:00:00 Letter (Out) Juan Henderson [facility] [id number] [id number] [facility] 2020-08-24 13:48:41 2020-08-24 15:00:53 Office Visit Billie Robertson [facility] [id number] [facility] 2020-08-24 14:15:00 2020-08-24 14:15:00 Outpatient R BILLIE ROBERTSON [facility] [id number] [facility]
[2024-01-20 07:50] LABS: Specific Gravity 1.022 (1.005-1.030)
[2024-01-20 07:55] LABS: Specific Gravity 1.022 (1.005-1.030); Sqamous Epithelial <5 /HPF (None Seen); Urine Bacteria None Seen /HPF (<20); Urine Bilirubin NEGATIVE (Negative); Urine Blood 1+ (Negative); Urine Clarity Clear (Clear); Urine Color Light-Yellow (Yellow); Urine Culture Reflex Order NOT NEEDED; Urine Glucose NEGATIVE (Negative); Urine Ketones NEGATIVE (Negative); Urine Micro Reflex YN NO BILL MICROSCOPIC; Urine Mucus Slight /HPF (None Seen); Urine Nitrite NEGATIVE (Negative); Urine Protein NEGATIVE (Negative); Urine RBC <5 /HPF (None Seen); Urine Urobilinogen 2+ (Normal); Urine WBC <5 /HPF (<5)
--- NOTE | 2024-01-20 08:19 | ER ---
Nurse's Notes [facility] Name: Harmony Montiel Age: 18 yrs Sex: Female : 2005 Arrival Date: 01/20/2024 Time: 07:06 Bed 18 Private MD: Diagnosis: Generalized weakness, now resolved Presentation: 01/19 07:24 Chief complaint: Patient states: Awoke today at 0545 with weakness, lightheaded, ll1 nausea, body feels numb, and 1 episode of CP. Coronavirus screen: Client denies travel out of the [place] in the last 14 days. fatigue, nausea, Client presents with at least one sign or symptom that may indicate coronavirus-19. Standard/surgical mask placed on the client. Ebola Screen: Patient denies travel to an Ebola-affected area in the 21 days before illness onset. No acute neurological deficit is noted. Initial Sepsis Screen: Does the patient meet any 2 criteria? No. Patient's initial sepsis screen is negative. Does the patient have a suspected source of infection? No. Patient's initial sepsis screen is negative. Risk Assessment: Do you want to hurt yourself or someone else? Patient reports no desire to harm self or others. Onset of symptoms was January 20, 2024. 07:24 Method Of Arrival: Ambulatory ll1 07:24 Acuity: BASHIR 3 ll1 Triage Assessment: 07:26 General: Appears uncomfortable, Behavior is calm, cooperative, appropriate for age. ll1 Pain: Denies pain. Neuro: Reports dizziness, numbness weakness. Cardiovascular: Reports chest pain, fatigue, lightheadedness, nausea. 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 - Infectious Disease History:: Denies. - Social history:: Smoking status: Reported history of juuling and/or vaping. Screenin:45 [facility] ED Fall Risk Assessment (Adult) History of falling in the last 3 months, ap3 including since admission No falls in past 3 months (0 pts) Confusion or Disorientation No (0 pts) Intoxicated or Sedated No (0 pts) Impaired Gait No (0 pts) Mobility Assist Device Used No (0 pt) Altered Elimination No (0 pt) Score/Fall Risk Level 0 - 2 = Low Risk Oriented to surroundings, Maintained a safe environment, Educated pt \T\ family on fall prevention, incl call for assistance when getting out of bed, Assessed \T\ reinforced patient's understanding of fall precautions, Provided non-skid footwear, Hourly rounding (assess needs \T\ fall precautionary measures) done, Used ambulatory aids as needed (educated on \T\ assisted with), Used gait belt as appropriate. Abuse screen: Denies threats or abuse. Nutritional screening: No deficits noted. Tuberculosis screening: No symptoms or risk factors identified. Assessment: 07:43 General: Appears in no apparent distress. Behavior is calm, cooperative, appropriate ap3 for age. Pain: Denies pain. Neuro: Level of Consciousness is awake, alert, obeys commands, Oriented to person, place, time, situation, Appropriate for age. Cardiovascular: Patient's skin is warm and dry. Respiratory: Airway is patent Respiratory effort is even, unlabored. Vital Signs: 07:24 BP 118 / 84; Pulse 71; Resp 17; Temp 98.2; Pulse Ox 99% ; Weight 56.7 kg; Height 5 ft. ll1 5 in. ; Pain 0/10; 07:24 Body Mass Index 20.80 (56.70 kg, 165.1 cm) ll1 07:24 Pain Scale: Adult ll1 ED Course: 07:08 Patient arrived in ED. mr 07:18 Isaías Granger MD is Attending Physician. sp3 07:23 Arm band placed on Patient placed in an exam room, on a stretcher. ll1 07:26 Triage completed. ll1 07:37 Jen Garsia, MELA is Primary Nurse. ap3 07:45 Patient has correct armband on for positive identification. Call light in reach. Side ap3 rails up X 1. Adult w/ patient. Provided Education on: fall risk, call light and PO challenge education. Pulse ox on. NIBP on. 07:46 Test, Urine Sent. ap3 07:46 UAM Sent. ap3 08:48 No provider procedures requiring assistance completed. Patient did not have IV access ap3 during this emergency room visit. Administered Medications: No medications were administered Medication: 07:46 VIS not applicable for this client. ap3 Outcome: 08:18 Discharge ordered by . sp3 08:48 Discharged to home ambulatory, ap3 08:48 Condition: good 08:48 Discharge instructions given to patient, Instructed on discharge instructions, follow up and referral plans. Demonstrated understanding of instructions, follow-up care, 08:48 Patient left the ED. ap3 Signatures: Elvi Ordonez, Reg Reg mr renettaalanaJen, RN RN ap3 Elena Elaine RN RN ll1 Isaías Granger MD MD sp3
--- NOTE | 2024-01-20 08:19 | EDPHYS ---
Physician Documentation [facility] Name: Harmony Montiel Age: 18 yrs Sex: Female : 2005 Arrival Date: 01/20/2024 Time: 07:06 Bed 18 Private MD: ED Physician Isaías Garnger HPI: 01/19 07:32 This 18 yrs old Black Female presents to ER via Ambulatory with complaints of Weakness. sp3 07:32 18-year-old female with no past medical history presents with chief complaint sp3 generalized weakness since waking up this morning. Patient thinks that she may be "dehydrated". She does states she has adequate urine output. She is also currently on her menses. She denies any other symptoms including headache, fever, URI symptoms, shortness of breath, abdominal pain, vomiting, diarrhea, syncope, near syncope, rash, or any other signs or symptoms on ROS at this time. She stated that she had fleeting chest pain which has resolved. She had a full cardiac workup performed approximately 2 months ago on her prior visit.. 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 - Infectious Disease History:: Denies. - Social history:: Smoking status: Reported history of juuling and/or vaping. ROS: 07:33 Constitutional: Negative for fever, chills, and weight loss, Eyes: Negative for injury, sp3 pain, redness, and discharge, ENT: Negative for injury, pain, and discharge, Neck: Negative for injury, pain, and swelling, Cardiovascular: Negative for chest pain, palpitations, and edema, Respiratory: Negative for shortness of breath, cough, wheezing, and pleuritic chest pain, Abdomen/GI: Negative for abdominal pain, nausea, vomiting, diarrhea, and constipation, Back: Negative for injury and pain, MS/Extremity: Negative for injury and deformity, Skin: Negative for injury, rash, and discoloration, Neuro: Negative for headache, weakness, numbness, tingling, and seizure, Psych: Negative for depression, anxiety, suicide ideation, homicidal ideation, and hallucinations, Allergy/Immunology: Negative for hives, rash, and allergies, 07:33 All other systems are negative, Exam: 07:34 Constitutional: This is a well developed, well nourished patient who is awake, alert, sp3 and in no acute distress. Head/Face: Normocephalic, atraumatic. Eyes: Pupils equal round and reactive to light, extra-ocular motions intact. Lids and lashes normal. Conjunctiva and sclera are non-icteric and not injected. Cornea within normal limits. Periorbital areas with no swelling, redness, or edema. ENT: Nares patent. No nasal discharge, no septal abnormalities noted. External auditory canals are clear. Oropharynx with no redness, swelling, or masses, exudates, or evidence of obstruction, uvula midline. Mucous membranes moist. Neck: Trachea midline, no thyromegaly or masses palpated, and no cervical lymphadenopathy. Supple, full range of motion without nuchal rigidity, or vertebral point tenderness. No Meningismus. Chest/axilla: Normal chest wall appearance and motion. Nontender with no deformity. No lesions are appreciated. Cardiovascular: Regular rate and rhythm with a normal S1 and S2. No gallops, murmurs, or rubs. Normal PMI, no JVD. No pulse deficits. Respiratory: Lungs have equal breath sounds bilaterally, clear to auscultation and percussion. No rales, rhonchi or wheezes noted. No increased work of breathing, no retractions or nasal flaring. Abdomen/GI: Soft, non-tender, with normal bowel sounds. No distension or tympany. No guarding or rebound. No evidence of tenderness throughout. Back: No spinal tenderness. No costovertebral tenderness. Full range of motion. Skin: Warm, dry with normal turgor. Normal color with no rashes, no lesions, and no evidence of cellulitis. MS/ Extremity: Pulses equal, no cyanosis. Neurovascular intact. Full, normal range of motion. Neuro: Awake and alert, GCS 15, oriented to person, place, time, and situation. Cranial nerves II-XII grossly intact. Motor strength 5/5 in all extremities. Sensory grossly intact. Cerebellar exam normal. Normal gait. Psych: Awake, alert, with orientation to person, place and time. Behavior, mood, and affect are within normal limits. Vital Signs: 07:24 BP 118 / 84; Pulse 71; Resp 17; Temp 98.2; Pulse Ox 99% ; Weight 56.7 kg; Height 5 ft. ll1 5 in. ; Pain 0/10; 07:24 Body Mass Index 20.80 (56.70 kg, 165.1 cm) ll1 07:24 Pain Scale: Adult ll1 MDM: 07:18 Patient medically screened. sp3 07:35 Data reviewed: vital signs, nurses notes, old medical records, lab test result(s). ED sp3 course: 18-year-old female with no past medical history now with generalized weakness and fatigue. Differential diagnosis includes mild dehydration, viral illness, menses related fatigue. Clinically have ruled out sepsis, acute coronary syndrome, PE, acute vascular pathology, or any other critical illness. Patient has completely normal vital signs and is in no acute distress currently on her phone in full conversation including laughter. Mom who is in the room also agrees that her presentation is mild and it is likely due to either decreased p.o. intake and/or menses or combination. We will give p.o. intake liquids and check a urine analysis and hCG. If negative, we will reassure patient and safely discharged home with continued follow-up to PCP as needed and general hydration guidelines.. 08:18 ED course: UA is negative and patient is well-appearing and feels better after p.o. sp3 intake. We will safely discharge patient home at this time.. 01/19 07:30 Order name: UAM; Complete Time: 08:07 sp3 01/19 07:30 Order name: Test, Urine; Complete Time: 08:07 sp3 01/19 07:36 Order name: PO challenge: PO fluids; Complete Time: 07:46 sp3 Administered Medications: No medications were administered Disposition Summary: 01/20/24 08:18 Discharge Ordered Notes: Location: Home sp3 Condition: Stable sp3 Diagnosis - Generalized weakness, now resolved sp3 Followup: sp3 - With: Private Physician - When: Upon discharge from the Emergency Department - Reason: Continuance of care Discharge Instructions: - Discharge Summary Sheet sp3 - Daytime Fatigue, Teen sp3 Forms: - Medication Reconciliation Form sp3 - Antibiotic Education sp3 - Prescription Opioid Use sp3 - Patient Portal Instructions sp3 - Leadership Thank You Letter sp3 Signatures: Dispatcher Elena Valentine, MELA RN ll1 Isaías Granger MD MD sp3
[2024-01-20 09:11] VITALS: BP 118/84; TEMP 98.2; O2SAT 99
== END 2024-01-20 08:48 | disposition home or self-care (01) ==
LOC: ER 07:06
DX: R53.1 Weakness (principal)
CPT/HCPCS: 81001; 81025; 99283

== ENCOUNTER 2024-05-17 22:05 | Emergency (ER) | payer SELFPAY ==
--- OUTSIDE RECORDS SUMMARY | 2024-05-17 22:08 | XMS REPORT | Continuity of Care Document ---
Author Name Unknown Address [address] [place] [address] [facility] thconnect Address [address] [place] [address] Care Team Providers Care Sewing Room Supervisor Name Role Phone RUPESH KRUEGER Attending Clinician Unavail able Santiago KENNEDY, Juan Attending Clinician + Kamlesh Levin MD Attending Clinician KAMLESH LEVIN Attending Clinician Jazmin Robertson MD, Billie Herrmann Attending Clinician [phone] BILLIE ROBERTSON Attending Clinician Unavail able Payers Payer Name Policy Type Policy Number Effective Date Expirati on Date Source [facility] MED[facility] [id number] 2020 00:00:00 Problems Condition Name Condition Details Condition Category Status Onset Date Resolution Date Last Treatment Date Treating Clinician Comments Source No known active problems No known active problems Disease [facility] Allergies, Adverse Reactions, Alerts Allergy Name Allergy Type Status Severity Reaction(s) Onset Date Inactive Date Treating Clinician Comments Source NO KNOWN ALLERGIE S Drug Class Active [facility] Social History Social Habit Start Date Stop Date Quantity Comments Source Exposure to SARS-CoV-2 (event) Not sure [facility] Sex Assigned At [facility] Smoking Status Start Date Stop Date Source Unknown if ever smoked Unive [facility] Medications Ordered Medication Name Filled Medication Name Start Date Stop Date Current Medication? Ordering Clinician Indication Dosage Frequency Signature (SIG) Comments Components Source No known medications No Un nancy [facility] No known medications No Un nancy [facility] No known medications No Un nancy [facility] No known medications No Un nancy [facility] No known medications No Un nancy [facility] Vital Signs Vital Name Observation Time Observation Value Comments Flakito mohan Body weight 2020-09-04 16:58:00 58.968 kg [facility] Body weight 2020-09-04 16:58:00 58.968 kg [facility] Body height 2020-08-24 20:36:00 162.6 cm [facility] Body weight 2020-08-24 20:36:00 58.514 kg [facility] BMI 2020-08-24 20:36:00 22.14 kg/m2 [facility] Procedures Procedure Date / Time Performed Performing Clinician Source DERMATOPATHOLOGY TISSUE EXAM 2020-09-04 00:00:00 Kamlesh Levin [facility] Encounters Start Date/Time End Date/Time Encounter Type Admission Type Attending Clinicians Care Facility Care Department Encounter ID Source 2020-10-09 10:30:00 2020-10-09 10:30:00 Outpatient RUPESH SAUL [facility] [id number] [facility] 2020-09-04 10:00:23 2020-09-04 15:37:22 Office Visit Juan Henderson [facility] [id number] 2020-09-04 10:00:23 2020-09-04 15:37:22 Office Visit Juan Henderson Bernard R [facility] [id number] [facility] 2020-09-04 10:30:00 2020-09-04 10:30:00 Outpatient KAMLESH LOPES [facility] [id number] [facility] 2020-09-04 00:00:00 2020-09-04 00:00:00 Letter (Out) Juan Henderson [facility] [id number] [facility] 2020-08-24 13:48:41 2020-08-24 15:00:53 Office Visit Billie Robertson [facility] [id number] [facility] 2020-08-24 14:15:00 2020-08-24 14:15:00 Outpatient R BILLIE ROBERTSON [facility] [id number] [facility]
[2024-05-17 23:21] LABS: Specific Gravity 1.028 (1.005-1.030)
[2024-05-17 23:22] LABS: Specific Gravity 1.028 (1.005-1.030); Sqamous Epithelial <5 /HPF (None Seen); Urine Bacteria <20 /HPF (<20); Urine Bilirubin 1+ (Negative); Urine Blood Negative (Negative); Urine Clarity Turbid (Clear); Urine Color Dark-Yellow (Yellow); Urine Culture Reflex Order REFLEXED; Urine Glucose NEGATIVE (Negative); Urine Ketones NEGATIVE (Negative); Urine Microscopic Reflex YN ORDER UMIC; Urine Nitrite 1+ (Negative); Urine Protein 1+ (Negative); Urine RBC 21-50 /HPF (None Seen); Urine Urobilinogen 1+ (Normal); Urine WBC 20-50 /HPF (<5)
--- NOTE | 2024-05-17 23:25 | EDPHYS ---
Physician Documentation [facility] Name: Harmony Montiel Age: 18 yrs Sex: Female : 2005 Arrival Date: 05/17/2024 Time: 22:05 Bed 18 Private MD: ED Physician Ivan Bullock HPI: 05/17 22:28 This 18 yrs old Black Female presents to ER via Ambulatory with complaints of Urinary kb Problem. 22:28 Pt is a 18 year old female who presents for dysuria and urinary urgency that started kb one week ago. States she was diagnosed with a UTI 5 days ago and was started on Amoxicillin, but it isn't helping. Denies fever, flank pain, abd pain. . 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 - Infectious Disease History:: Denies. - Social history:: Smoking status: Reported history of juuling and/or vaping. ROS: 22:29 Constitutional: As per HPI kb Exam: 22:30 Constitutional: This is a well developed, well nourished patient who is awake, alert, kb and in no acute distress. Head/Face: Normocephalic, atraumatic. ENT: Moist Mucous membranes Cardiovascular: Regular rate Respiratory: Respirations even and unlabored. No increased work of breathing. Talking in full sentences Abdomen/GI: Soft, non-tender. No distention Back: No spinal tenderness. No costovertebral tenderness. Full range of motion. Skin: Warm, dry with normal turgor. Normal color. MS/ Extremity: Pulses equal, no cyanosis. Neurovascular intact. Full, normal range of motion. Neuro: Awake and alert, GCS 15, oriented to person, place, time, and situation. Moves all extremities. Normal gait. Vital Signs: 22:18 BP 126 / 85; Pulse 86; Resp 16; Temp 98.1(O); Pulse Ox 100% on R/A; Pain 6/10; tl4 22:37 BP 121 / 86; Pulse 75; Resp 17; Temp 98.1(O); Pulse Ox 100% ; Pain 0/10; rg5 23:09 BP 115 / 76; Pulse 77; Resp 17; Pulse Ox 99% on R/A; Pain 0/10; rg5 05/18 00:00 BP 114 / 73; Pulse 78; Resp 16; Temp 98; Pulse Ox 99% on R/A; Pain 0/10; rg5 05/17 22:18 Pain Scale: Adult tl4 22:37 Pain Scale: Adult rg5 23:09 Pain Scale: Adult rg5 05/18 00:00 Pain Scale: Adult rg5 [place] Coma Score: 05/17 22:38 Eye Response: spontaneous(4). Motor Response: obeys commands(6). Verbal Response: rg5 oriented(5). Total: 15. MDM: 22:09 Patient medically screened. kb 22:30 Differential diagnosis: UTI, pyelonephritis, kidney stone. Data reviewed: vital signs, kb nurses notes. 23:24 Counseling: I had a detailed discussion with the patient and/or guardian regarding the kb historical points, exam findings, and any diagnostic results supporting the discharge/admit diagnosis, lab results, the need for outpatient follow up, a family practitioner, to return to the emergency department if symptoms worsen or persist or if there are any questions or concerns that arise at home. 05/17 22:16 Order name: Urinalysis w/ reflexes; Complete Time: 23:24 kb 05/17 22:16 Order name: Test, Urine; Complete Time: 23:24 kb 05/17 23:25 Order name: Urine Culture EDMS Administered Medications: 23:45 Drug: Phenazopyridine PO 100 mg PO once Route: PO; rg5 Disposition: 05/18 00:14 Co-signature as Attending Physician, Ivan Bullock MD I reviewed the patient's care rt provided by the Advanced Practice Provider and agree with the diagnosis and treatment plan. Disposition Summary: 05/17/24 23:25 Discharge Ordered Notes: Location: Home Condition: Stable kb Diagnosis - UTI/ Urinary tract infection, site not specified kb Followup: kb - With: Emergency Department - When: As needed - Reason: Worsening of condition Followup: kb - With: Private Physician - When: 2 - 3 days - Reason: Recheck today's complaints, Continuance of care, Re-evaluation by your physician Discharge Instructions: - Discharge Summary Sheet kb - Urinary Tract Infection, Adult, Inbw-nu-Ocav kb Forms: - Medication Reconciliation Form kb - Antibiotic Education kb - Prescription Opioid Use kb - Patient Portal Instructions kb - Leadership Thank You Letter kb Prescriptions: - Pyridium 200 mg Oral Tablet - take 1 tablet ORAL route every 8 hours for 3 days; 9 tablet; Refills: 0, kb Product Selection Permitted - cefpodoxime 100 mg Oral Tablet - take 1 tablet ORAL route every 12 hours for 10 days take with food; 20 tablet; kb Refills: 0, Product Selection Permitted Signatures: Dispatcher [employer] EDGA Breana Poole, KNOCKUP WORKER-C KNOCKUP WORKER-Ivan Turk MD MD rt Eliezer Cash RN RN tl4 Tito Elizabeth, RN RN rg5
--- NOTE | 2024-05-17 23:25 | ER ---
Nurse's Notes [facility] Name: Harmony Montiel Age: 18 yrs Sex: Female : 2005 Arrival Date: 05/17/2024 Time: 22:05 Bed 18 Private MD: Diagnosis: UTI/ Urinary tract infection, site not specified Presentation: 05/17 22:18 Chief complaint: Patient states: Pt states she has an ongoing UTI with pain, burning, tl4 frequency, and urgency. No relief with antibiotics and AZO. Pt denies fever. Coronavirus screen: At this time, the client does not indicate any symptoms associated with coronavirus-19. Ebola Screen: No symptoms or risks identified at this time. Initial Sepsis Screen: Does the patient meet any 2 criteria? No. Patient's initial sepsis screen is negative. Does the patient have a suspected source of infection? No. Patient's initial sepsis screen is negative. Risk Assessment: Do you want to hurt yourself or someone else? Patient reports no desire to harm self or others. Onset of symptoms was May 11, 2026. 22:18 Method Of Arrival: Ambulatory tl4 22:18 Acuity: BASHIR 4 tl4 Triage Assessment: 22:20 General: Appears in no apparent distress. Behavior is calm, cooperative. Pain: tl4 Complains of pain in pelvis. EENT: No signs and/or symptoms were reported regarding the EENT system. Neuro: Level of Consciousness is awake, alert, obeys commands, Oriented to person, place, time, situation. Cardiovascular: Capillary refill < 3 seconds Patient's skin is warm and dry. Respiratory: Airway is patent Respiratory effort is even, unlabored, Respiratory pattern is regular, symmetrical. GI: No signs and/or symptoms were reported involving the gastrointestinal system. : Reports burning with urination, pain urgency, urinary frequency. Derm: No signs and/or symptoms reported regarding the dermatologic system. Musculoskeletal: No signs and/or symptoms reported regarding the musculoskeletal system. 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 - Infectious Disease History:: Denies. - Social history:: Smoking status: Reported history of juuling and/or vaping. Screenin:38 [facility] ED Fall Risk Assessment (Adult) History of falling in the last 3 months, rg5 including since admission No falls in past 3 months (0 pts) Confusion or Disorientation No (0 pts) Intoxicated or Sedated No (0 pts) Impaired Gait No (0 pts) Mobility Assist Device Used No (0 pt) Altered Elimination No (0 pt) Score/Fall Risk Level 0 - 2 = Low Risk Oriented to surroundings, Maintained a safe environment, Hourly rounding (assess needs \T\ fall precautionary measures) done. Abuse screen: Denies threats or abuse. Nutritional screening: No deficits noted. Tuberculosis screening: No symptoms or risk factors identified. Assessment: 22:38 General: Appears in no apparent distress. Behavior is calm, cooperative, appropriate rg5 for age. Pain: Denies pain. Neuro: Level of Consciousness is awake, alert, obeys commands, Oriented to person, place, time. Cardiovascular: Patient's skin is warm and dry. Respiratory: Airway is patent Trachea midline Respiratory effort is even, unlabored, Respiratory pattern is regular, symmetrical. GI: Abdomen is round non-distended, Bowel sounds present X 4 quads. Abd is soft and non tender. : Reports burning with urination, pain with urination, Pain is 7 out of 10 on a pain scale. EENT: No deficits noted. Derm: Skin is intact, Skin is dry, Skin is normal, Skin temperature is warm. Musculoskeletal: Circulation, motion, and sensation intact. Range of motion: intact in all extremities. 23:09 Reassessment: No changes from previously documented assessment. Patient and/or family rg5 updated on plan of care and expected duration. Pain level reassessed. Patient is alert, oriented x 3, equal unlabored respirations, skin warm/dry/pink. 05/18 00:00 Reassessment: Patient and/or family updated on plan of care and expected duration. Pain rg5 level reassessed. Patient is alert, oriented x 3, equal unlabored respirations, skin warm/dry/pink. Vital Signs: 05/17 22:18 BP 126 / 85; Pulse 86; Resp 16; Temp 98.1(O); Pulse Ox 100% on R/A; Pain 6/10; tl4 22:37 BP 121 / 86; Pulse 75; Resp 17; Temp 98.1(O); Pulse Ox 100% ; Pain 0/10; rg5 23:09 BP 115 / 76; Pulse 77; Resp 17; Pulse Ox 99% on R/A; Pain 0/10; rg5 05/18 00:00 BP 114 / 73; Pulse 78; Resp 16; Temp 98; Pulse Ox 99% on R/A; Pain 0/10; rg5 05/17 22:18 Pain Scale: Adult tl4 22:37 Pain Scale: Adult rg5 23:09 Pain Scale: Adult rg5 05/18 00:00 Pain Scale: Adult rg5 [place] Coma Score: 05/17 22:38 Eye Response: spontaneous(4). Motor Response: obeys commands(6). Verbal Response: rg5 oriented(5). Total: 15. ED Course: 22:08 Patient arrived in ED. ra3 22:09 Breana Poole FNP-C [facility] kb 22:09 Ivan Bullock MD is Attending Physician. kb 22:10 Tito Elizabeth RN is Primary Nurse. rg5 22:20 Triage completed. tl4 22:21 Arm band placed on right wrist. tl4 22:22 Patient has correct armband on for positive identification. Placed in gown. Bed in low tl4 position. Call light in reach. Side rails up X 1. Provided Education on: ed process, call toro. 22:38 Door closed. Noise minimized. Warm blanket given. Verbal reassurance given. rg5 22:38 No provider procedures requiring assistance completed. Patient did not have IV access rg5 during this emergency room visit. Administered Medications: 23:45 Drug: Phenazopyridine PO 100 mg PO once Route: PO; rg5 Medication: 22:38 VIS not applicable for this client. rg5 Outcome: 23:25 Discharge ordered by . debby 05/18 00:06 Discharged to home ambulatory, rg5 Condition: stable Discharge instructions given to patient, Instructed on discharge instructions, follow up and referral plans. Demonstrated understanding of instructions, follow-up care, medications, Prescriptions given X 2, 00:07 Patient left the ED. rg5 Signatures: Breana Poole FNP-C FNP-Ckb Logdahl, Toni, RN RN tl4 Jessi Noland ra3 Tito Elizabeth, RN RN rg5
[2024-05-18] MEDS ORDERED: PHENAZOPYRIDINE 100MG TAB PO ONE (00:03)
[2024-05-18 00:52] VITALS: O2SAT 99
[2024-05-18 00:54] VITALS: BP 114/73; TEMP 98
== END 2024-05-18 00:07 | disposition home or self-care (01) ==
LOC: ER 22:05
DX: N39.0 Urinary tract infection, site not specified (principal)
CPT/HCPCS: 81001; 81025; 87077; 87086; 87088; 87186; 99283